=== PATIENT | female | born 2000 | race Caucasian/White ===

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

== ENCOUNTER → 2019-01-25 | Outpatient (REF) | payer OTHER ==
[2019-01-25 17:24] LABS: APPEARANCE, URINE HAZY (CLEAR); BACTERIA, URINE AUTO 1+ (NEGATIVE); BILIRUBIN, URINE AUTO NEGATIVE (NEGATIVE); BLOOD, URINE BLOOD 1+ (NEGATIVE); COLOR, URINE YELLOW (YELLOW); GLUCOSE, URINE (UA) AUTO NEGATIVE (NEGATIVE); KETONE, URINE AUTO NEGATIVE (NEGATIVE); LEUKOCYTE ESTERASE, URINE AUTO 2+ (NEGATIVE); NITRITE, URINE AUTO NEGATIVE (NEGATIVE); PROTEIN, URINE AUTO NEGATIVE (NEGATIVE); RBC, URINE AUTO 2 /HPF (0-3); SPECIFIC GRAVITY URINE AUTO 1.019 (1.002-1.035); SQUAMOUS EPITHELIAL CELL UR AU 4 /HPF (0-6); UROBILINOGEN, URINE AUTO 0.2 mg/dL (0.0-2.0); WBC, URINE AUTO 11 /HPF (0-3)
== END ==
LOC: M SMT 16:48
PROVIDERS: ATTEND Nurse Practitioner Family
DX: R31.29 Other microscopic hematuria (principal)

== ENCOUNTER → 2019-11-10 | Outpatient (REF) | payer OTHER | LOC: M SFHCLUC 17:19 | PROVIDERS: ATTEND Physician Assistant | DX: R30.0 Dysuria (principal) ==